=== PATIENT | male | born 1960 | race Caucasian/White ===

== ENCOUNTER 2017-08-31 07:59 | Day surgery (SDC) | payer OTHER ==
[2017-08-27 13:19] VITALS: BMI 32.1
[2017-08-31] MEDS ORDERED: PROPOFOL 20 ML ONE ×2 (08:38)
[2017-08-31] MEDS ORDERED: LIDOCAINE HCL/PF 2% SDV 5ML VIAL ONE (08:38)
[2017-08-31 10:36] VITALS: TEMP 97.7
[2017-08-31 11:16] VITALS: BP 107/71; PULSE 64
--- NOTE | 2017-09-02 10:39 | PATH ---
Surgical Pathology Report Patient Name: CLARISA ERICKSON [facility]. Rec. #: [id number] /Age/Gender: 1960 (Age: 57) / M Account: [id number] Location: Taken: 08/31/2017 Received: 08/31/2017 Reported: 09/02/2017 Physicians: Prince Jones M.D. Specimen(s) Received A: SPLENIC FLEXURE POLYP B: CECAL POLYP Clinical History Preoperative diagnosis: History of polyp, family history of colon cancer Postoperative diagnosis: Diverticulosis, colon polyps Final Diagnosis A. COLON, SPLENIC FLEXURE, POLYPECTOMY: TUBULAR ADENOMA. B. COLON, CECUM, POLYPECTOMY: TUBULAR ADENOMA. Comment: Recommend correlation with clinical findings and follow up as clinically indicated. Electronically Signed Terry Da Silva M.D. Gross Description A. Received in formalin, labeled "splenic flexure polyp" is a flores, irregular portion of soft tissue measuring 0.2 cm. in greatest dimension. The specimen is submitted in toto in one cassette. B. Received in formalin, labeled "cecal polyp" is a flores, irregular portion of soft tissue measuring 0.2 cm. in greatest dimension. The specimen is submitted in toto in one cassette. 09/01/201709/01/2017
== END 2017-08-31 11:10 | disposition home or self-care (01) ==
LOC: FASU-ENDO 07:59
PROVIDERS: ATTEND Internal Medicine Gastroenterology
PROC: 0DBL8ZX Excision of Transverse Colon, Via Natural or Artificial Opening Endoscopic, Diagnostic (ICD-10-PCS; 2017-08-31)
PROC: 0DBH8ZX Excision of Cecum, Via Natural or Artificial Opening Endoscopic, Diagnostic (ICD-10-PCS; principal; 2017-08-31 09:00)
DX: Z86.010 Personal history of colon polyps (principal); Z83.71 Family history of colonic polyps; Z80.0 Family history of malignant neoplasm of digestive organs; K57.30 Diverticulosis of large intestine without perforation or abscess without bleeding
CPT/HCPCS: 88305-TC

== ENCOUNTER 2018-05-10 17:12 | Inpatient (IN) | payer OTHER ==
[2018-05-10] MEDS ORDERED: SODIUM CHLORIDE 1,000 ML IV STA ×3 (17:52→19:15)
[2018-05-10] MEDS ORDERED: ONDANSETRON 4 MG/2 ML VIAL IVPUSH ONE (17:56)
--- NOTE | 2018-05-10 18:03 | PDOC ---
Attending Attestation - HPI HPI: 05/10/18 21:21 The patient is a 57 year old male with a past medical history of HTN and type 2 diabetes who presents to the emergency department for evaluation of blood sugar problem w/ vomiting. The patient reports sudden onset of NBNB emesis at 1130 am. Pt endorses symptoms of subjective fever, chills, urinary frequency, epigastric pain, weight loss, and severe shortness of breath. As per at bedside, the patient recently ran out of Fisgo and REVENTIVE a couple of days ago. Pt reports a BS level of 380 after checking it at work today. He endorses recent travel and sick contact from a person on the plane. The patient denies chest pain, headache, dizziness, diarrhea, constipation, dysuria, and hematuria. Allergies: ampicillin, penicillins. - Physicial Exam PE: Constitutional: (+)Toxic appearing. Head: Normocephalic. Atraumatic Eyes: PERRL. EOMI. Conjunctivae are not pale. ENT: (+)Dry mucous membranes. Posterior pharynx without exudates or erythema. Uvula midline. Neck: Supple. Full ROM. No lymphadenopathy. Cardiovascular: (+)Tachycardic. S1, S2 regular. Distal pulses are 2+ and symmetric. Pulmonary/Chest: (+)tachypneic. Clear to auscultation bilaterally No wheezing , rales or rhonchi. Abdominal: (+)Epigastric LUQ tenderness. Soft and non-distended. No rebound, guarding or rigidity. No organomegaly. No palpable masses. Good bowel sounds. Back: No CVA tenderness. Musculoskeletal: (+) Mild trace edema at ankles. No cyanosis. No clubbing. Full range of motion in all extremities. Nocalf tenderness. Radial/pedal pulses are intact and 2+ bilaterally Skin: Skin is warm and dry. No petechiae. No purpura. Neurological: Alert and oriented to person, place, and time. Cranial nerves II -XII are grossly intact. Normal speech. Strength is grossly symmetric. No sensory deficits. Psychiatric: Good eye contact. Normal interaction, affect and behavior. <Yandel Randle - Last Filed: 05/10/18 21:21> - Resident Resident Name: Jose Noel - ED Attending Attestation I have performed the following: I have examined & evaluated the patient, The case was reviewed & discussed with the resident, I agree w/resident's findings & plan, Exceptions are as noted - Critical Care Time Total Critical Care Time: 60 Critical Care Statement: The care of this patient involved high complexity decision making to prevent further life threatening deterioration of the patient 's condition and/or to evaluate & treat vital organ system(s) failure or risk of failure. - Medical Decision Making 05/10/18 18:03 I, Dr. Angy Gentile DO, attest that this document has been prepared under my direction and personally reviewed by me in its entirety. I further attest, that it accurately reflects all work, treatment, procedures and medical decision -making performed by me. 05/10/18 19:30 a/p: 57yo male with tachy, tachypnic, out of insulin x 2 days -concern for DKA -will send labs, vbg, acetone -will start IVF hydration -glucose at work was 340 -out of insulin x 2 days -will start insulin gtt pending labs -pt will need to be admitted 05/10/18 19:34 gap 34 glucose elevated lactic acid elevated most likely from tachypnea -will repeat -ivf hdyration running K ok to star insulin gtt discussed case with Dr. Pearl who accepts pt to service 05/10/18 19:34 case discussed with ICU resident who accepts pt to service insulin gtt ordered <Angy Gentile - Last Filed: 05/10/18 21:41> Heart Score/ECG Review - ECG Intrepretation Comment:: 05/10/18 21:41 sinus tach at 119, nl axis, nl interval, st depression v3-6 <Angy Gentile - Last Filed: 05/10/18 21:41> Attestations - Attestations Documentation prepared by Yandel Randle, acting as medical accounts receivable specialist for Angy Gentile DO. <Yandel Randle - Last Filed: 05/10/18 21:21>
[2018-05-10] MEDS ORDERED: AZTREONAM 2 GM in DEXTROSE 5%-WATER 100 ML IVPB ONE (18:26)
[2018-05-10 18:27] LABS: VENOUS PO2 88.9 mmHg (28-48)
[2018-05-10] MEDS ORDERED: SODIUM CHLORIDE 0.9% 1000 ML INFUS.BAG IV ONE ×3 (18:27→19:29)
[2018-05-10 18:29] LABS: VENOUS PC02 16.3 mmHg (38-52); VENOUS PH 7.1 (7.32-7.42)
[2018-05-10] MEDS ORDERED: ONDANSETRON 4 MG/2 ML VIAL ONE (18:33)
[2018-05-10 18:39] LABS: HEMATOCRIT 49.5 % (35.4-49); HEMOGLOBIN 15.8 GM/dL (11.7-16.9); MCH 31.5 pg (25.7-33.7); MCHC 31.9 g/dl (32.0-35.9); MEAN CELL VOLUME 98.8 fl (80-96); MEAN PLT VOLUME 9.1 fl (7.5-11.1); PLATELET COUNT 302 K/MM3 (134-434); WHITE BLOOD COUNT 24.4 K/mm3 (4.0-10.0)
--- NOTE | 2018-05-10 18:44 | PDOC ---
History of Present Illness - General Chief Complaint: Blood Sugar Problem Stated Complaint: DIABETES Time Seen by Provider: 05/10/18 17:44 History Source: Patient Exam Limitations: No Limitations - History of Present Illness Initial Comments: 05/10/18 18:38 Patient is a 57M with history of IDDM and HTN here today complaining of epigastric abdominal pain and vomiting that started this morning. The patient states that he recently ran out of his long acting insulin and recently traveled by air. Patient endorses losing weight and increased urination. Patient denies cough, chest pain. Patient denies history of prior DKA. Patient endorses fever, chills. Past History - Past Medical History Allergies/Adverse Reactions: Allergies Allergy/AdvReac Type Severity Reaction Status Date / Time ampicillin Allergy Severe ITCHING, Verified 08/31/17 08:21 RASH Penicillins Allergy Intermediate Itching, Verified 08/31/17 08:21 RASH Home Medications: Ambulatory Orders Insulin Aspart [Novolog] 18 unit SQ BID 06/08/15 Insulin Glargine,Hum.rec.anlog [Lantus (10mL VIAL) -] 68 units SQ HS 06/08/15 Atorvastatin Calcium 10 mg PO DAILY tablet 07/04/15 Losartan/Hydrochlorothiazide [Losartan-Hctz 100-12.5 Mg Tab] 1 each PO DAILY tablet 07/04/15 Cholecalciferol (Vitamin D3) [Vitamin D3] 2,000 unit PO DAILY 08/27/17 Dapagliflozin Propanediol [Farxiga] 10 mg PO DAILY 08/27/17 Sildenafil Citrate [Viagra] 50 mg PO HS 08/27/17 Anemia: No Asthma: No Cancer: No Cardiac Disorders: No CVA: No COPD: No CHF: No Dementia: No Diabetes: Yes (DX 2002) GI Disorders: Yes (HX COLONIC POLYS- FATHER COLON CA) Disorders: No HTN: Yes Hypercholesterolemia: Yes Liver Disease: No Seizures: No Thyroid Disease: No - Surgical History Abdominal Surgery: No Appendectomy: No Cardiac Surgery: No Cholecystectomy: No Lung Surgery: No Neurologic Surgery: No Orthopedic Surgery: Yes (RT PATELLA FX, FX JAW AT 20 YRS OLD) - Suicide/Smoking/Psychosocial Hx Smoking History: Current every day smoker Have you smoked in the past 12 months: Yes Number of Cigarettes Smoked Daily: 10 Information on smoking cessation initiated: No Hx Alcohol Use: Yes (BEER 2-3/ DAY) Drug/Substance Use Hx: No Substance Use Type: Alcohol Hx Substance Use Treatment: No Review of Systems - Review of Systems Able to Perform ROS?: Yes Comments:: 05/10/18 18:44 GENERAL/CONSTITUTIONAL: No fever or chills. No weakness. HEAD, EYES, EARS, NOSE AND THROAT: No change in vision. No sore throat. CARDIOVASCULAR: No chest pain +shortness of breath RESPIRATORY: No cough, wheezing, or hemoptysis. GASTROINTESTINAL: +nausea, +vomiting. No diarrhea or constipation. GENITOURINARY: No dysuria, +frequency MUSCULOSKELETAL: No joint or muscle swelling or pain. No neck or back pain. SKIN: No rash NEUROLOGIC: No headache, vertigo, loss of consciousness, or change in strength/ sensation. ENDOCRINE: No increased thirst. No abnormal weight change HEMATOLOGIC/LYMPHATIC: No anemia, easy bleeding, or history of blood clots. ALLERGIC/IMMUNOLOGIC: No hives or skin allergy. *Physical Exam - Vital Signs Last Vital Signs Temp Pulse Resp BP Pulse Ox 134 H 18 134/80 100 05/10/18 17:18 05/10/18 17:18 05/10/18 17:18 05/10/18 17:18 - Physical Exam Comments: 05/10/18 18:45 GENERAL: Awake, alert, and fully oriented, in acute distress, warm to touch HEAD: No signs of trauma, normocephalic, atraumatic EYES: PERRLA, EOMI, sclera anicteric, conjunctiva clear ENT: Auricles normal inspection, hearing grossly normal, nares patent, oropharynx clear without exudates. Moist mucosa NECK: Normal ROM, supple, no lymphadenopathy, JVD, or masses LUNGS: Tachypneic to 30-40, clear to auscultation bilaterally. HEART: Tachycardic, normal S1 and S2, no murmurs, rubs or gallops, peripheral pulses normal and equal bilaterally. ABDOMEN: Soft, +tenderness in LUQ, normoactive bowel sounds. No guarding, no rebound. No masses EXTREMITIES: Normal inspection, Normal range of motion, no edema. No clubbing or cyanosis. NEUROLOGICAL: Cranial nerves II through XII grossly intact. Normal speech, normal gait, no focal sensorimotor deficits SKIN: Warm, Dry, normal turgor, no rashes or lesions noted. ED Treatment Course - LABORATORY CBC & Chemistry Diagram: 05/10/18 18:30 05/10/18 21:19 - ADDITIONAL ORDERS Additional order review: Laboratory Results 05/10/18 18:20 VBG pH 7.10 L* POC VBG pCO2 16.3 L* POC VBG pO2 88.9 H Mixed VBG HCO3 4.9 L* - RADIOLOGY Radiology Studies Ordered: Category Date Time Status CXRPORT [CHEST X-RAY PORTABLE*] [RAD] Stat Radiology 05/10/18 17:55 Taken Medical Decision Making - Medical Decision Making 05/10/18 18:45 Patient is 57M with history of IDDM and HTN here today with fever. Vital signs documented by nursing show no tachypnea, but patient was tachypeic to 30-40s during my exam with Kussmaul respirations. No fever documented but warm to touch. Will initiate broad workup looking for infection. Will fluid resuscitate. Likely DKA. PE considered, but believe that DKA is much more likely given lack of leg swelling, chest pain, and presence of fever. 05/10/18 19:39 Laboratory Tests 05/10/18 05/10/18 05/10/18 18:30 18:30 18:30 Potassium 5.3 H Anion Gap 34 H Random Glucose 460 H* Lactic Acid 5.9 H* Troponin I 0.02 Acetone, Qual Positive large 3+ K - 5.3, Gap 34, Acetone pos. Started on 500cc/hr of NaCl with 20 meq, IV 10U insulin, IV 0.1 U/kg/hr of drip. Antibiosed with aztreonam given pcn allergy. Corti accepted. Admitted via Dr Pearl. 05/10/18 23:25 Gap 34 to 30. VBG ph 7.2 to 7.1. *DC/Admit/Observation/Transfer Diagnosis at time of Disposition: DKA (diabetic ketoacidoses) - Discharge Dispostion Condition at time of disposition: Critical Decision to Admit order: Yes - Referrals - Patient Instructions - Post Discharge Activity
[2018-05-10 18:58] LABS: ALBUMIN 4.5 g/dl (3.4-5.0); ANION GAP 34 (8-16); BLOOD UREA NITROGEN 24 mg/dL (7-18); CALCIUM 9.4 mg/dL (8.5-10.1); CHLORIDE 101 mmol/L (98-107); CO2 6 mmol/L (21-32); SODIUM 141 mmol/L (136-145)
[2018-05-10 19:00] LABS: GLUCOSE,RANDOM 460 mg/dL (74-106)
[2018-05-10 19:01] LABS: BILIRUBIN,TOTAL 0.5 mg/dL (0.2-1.0); CREATININE 1.6 mg/dL (0.7-1.3); POTASSIUM 5.3 mmol/L (3.5-5.1); SGOT/AST 28 U/L (15-37); SGPT/ALT 49 U/L (12-78); TOT PROT 7.7 g/dl (6.4-8.2)
[2018-05-10 19:04] LABS: ALK PHOS 77 U/L (45-117)
[2018-05-10] MEDS ORDERED: INSULIN REGULAR HUMAN 100 UNITS/ML *VIAL IVPUSH ONE (19:05)
[2018-05-10] MEDS ORDERED: INSULIN REGULAR 100 UNITS in SODIUM CHLORIDE 99 ML IVPB SCH (19:15)
[2018-05-10] MEDS ORDERED: SODIUM CHLORIDE 0.9%/KCL 20 MEQ/1,000 ML INFUS.BAG IV SCH ×2 (19:15)
[2018-05-10] MEDS ORDERED: INSULIN REGULAR HUMAN 100 UNITS/ML *VIAL ONE (19:17)
[2018-05-10 19:55] LABS: MACROCYTOSIS 1+; PLATELET ESTIMATE ADEQUATE
--- NOTE | 2018-05-10 20:05 | HP ---
Admitting History and Physical - Primary Care Physician PCP: William Pearl - Admission History of Present Illness: 57M with history of IDDM and HTN here today complaining of epigastric abdominal pain and vomiting that started this morning. The patient states that he recently ran out of his long acting insulin and recently traveled by air. Patient endorses losing weight and increased urination. candelario denies sob, chest pain. Patient denies history of prior DKA. - Past Medical History Cardiovascular: Yes: HTN Endocrine: Yes: Diabetes Mellitus - Smoking History Smoking history: Current every day smoker Have you smoked in the past 12 months: Yes Aproximately how many cigarettes per day: 10 - Alcohol/Substance Use Hx Alcohol Use: Yes (BEER 2-3/ DAY) Home Medications - Allergies Allergies/Adverse Reactions: Allergies Allergy/AdvReac Type Severity Reaction Status Date / Time ampicillin Allergy Severe ITCHING, Verified 08/31/17 08:21 RASH Penicillins Allergy Intermediate Itching, Verified 08/31/17 08:21 RASH - Home Medications Home Medications: Ambulatory Orders Insulin Aspart [Novolog] 18 unit SQ BID 06/08/15 Insulin Glargine,Hum.rec.anlog [Lantus (10mL VIAL) -] 68 units SQ HS 06/08/15 Atorvastatin Calcium 10 mg PO DAILY tablet 07/04/15 Losartan/Hydrochlorothiazide [Losartan-Hctz 100-12.5 mg Tab] 1 each PO DAILY tablet 07/04/15 Cholecalciferol (Vitamin D3) [Vitamin D3] 2,000 unit PO DAILY 08/27/17 Dapagliflozin Propanediol [Farxiga] 10 mg PO DAILY 08/27/17 Sildenafil Citrate [Viagra] 50 mg PO HS 08/27/17 Physical Examination Vital Signs: Vital Signs Temperature Pulse Rate 134 H 05/10/18 17:18 Respiratory Rate 18 05/10/18 17:18 Blood Pressure 134/80 05/10/18 17:18 O2 Sat by Pulse Oximetry (%) 100 05/10/18 17:18 Constitutional: Yes: No Distress HENT: Yes: Atraumatic Neck: Yes: Supple Cardiovascular: Yes: Regular Rate and Rhythm Respiratory: Yes: Rhonchi Gastrointestinal: Yes: Normal Bowel Sounds Extremities: Yes: WNL Edema: No Neurological: Yes: Alert, Oriented Labs: CBC, BMP 05/10/18 18:30 05/10/18 18:30 Problem List - Problems (1) DKA (diabetic ketoacidoses) Assessment/Plan: monitor bgms insulin drip endocrine consult Code(s): E13.10 - OTH DIABETES MELLITUS WITH KETOACIDOSIS WITHOUT COMA (2) Hyperlipidemia Assessment/Plan: on meds stable Code(s): E78.5 - HYPERLIPIDEMIA, UNSPECIFIED (3) Hypertension Assessment/Plan: on meds stable Code(s): I10 - ESSENTIAL (PRIMARY) HYPERTENSION Assessment/Plan Laboratory Tests 05/10/18 05/10/18 05/10/18 18:20 18:30 18:30 WBC 24.4 H RBC 5.00 Hgb 15.8 Hct 49.5 H MCV 98.8 H MCH 31.5 MCHC 31.9 L RDW 14.0 Plt Count 302 MPV 9.1 Absolute Neuts (auto) 21.2 H Total Counted 100 Neutrophils % No Result Required. Neutrophils % (Manual) 92.0 H Lymphocytes % No Result Required. Lymphocytes % (Manual) 3.0 L Monocytes % (Manual) 5 Nucleated RBC % 0 Differential Comment Man diff performed Platelet Estimate Adequate Platelet Comment Polychromasia 1+ Macrocytosis 1+ VBG pH 7.10 L* POC VBG pCO2 16.3 L* POC VBG pO2 88.9 H Mixed VBG HCO3 4.9 L* Sodium 141 Potassium 5.3 H Chloride 101 Carbon Dioxide 6 L Anion Gap 34 H BUN 24 H Creatinine 1.6 H Creat Clearance w eGFR 44.94 Random Glucose 460 H* Lactic Acid Calcium 9.4 Total Bilirubin 0.5 AST 28 ALT 49 Alkaline Phosphatase 77 Creatine Kinase 190 Creatine Kinase Index 2.2 CK-MB (CK-2) 4.20 H Troponin I 0.02 Total Protein 7.7 Albumin 4.5 Lipase Acetone, Qual 05/10/18 05/10/18 05/10/18 18:30 18:30 18:30 WBC RBC Hgb Hct MCV MCH MCHC RDW Plt Count MPV Absolute Neuts (auto) Total Counted Neutrophils % Neutrophils % (Manual) Lymphocytes % Lymphocytes % (Manual) Monocytes % (Manual) Nucleated RBC % Differential Comment Platelet Estimate Platelet Comment Polychromasia Macrocytosis VBG pH POC VBG pCO2 POC VBG pO2 Mixed VBG HCO3 Sodium Potassium Chloride Carbon Dioxide Anion Gap BUN Creatinine Creat Clearance w eGFR Random Glucose Lactic Acid 5.9 H* Calcium Total Bilirubin AST ALT Alkaline Phosphatase Creatine Kinase Creatine Kinase Index CK-MB (CK-2) Troponin I Total Protein Albumin Lipase 180 Acetone, Qual Positive large 3+ Active Medications Generic Name Dose Route Start Last Admin Trade Name Ida PRN Reason Stop Dose Admin Insulin Human Regular 100 100 mls @ 9.84 mls/hr 05/10/18 19:15 units/ Sodium Chloride IVPB TITR MELISSA Protocol 0.1 UNITS/KG/HR Potassium Chloride/Sodium Chloride 20 meq in 1,000 mls @ 500 mls/hr 05/10/18 19:15 Ns+20 Meq Kcl - IV ASDIR MELISSA Sodium Chloride 1,000 mls @ 1,000 mls/hr 05/10/18 19:15 Normal Saline - IV 05/10/18 20:14 ASDIR STA Active Medications Generic Name Dose Route Start Last Admin Trade Name Ida PRN Reason Stop Dose Admin Atorvastatin Calcium 10 mg 05/12/18 22:00 05/12/18 22:14 Lipitor - PO 10 mg HS MELISSA Administration Hydrochlorothiazide 12.5 mg 05/12/18 10:00 05/12/18 10:07 Hctz - PO 12.5 mg DAILY MELISSA Administration Insulin Aspart 12 units 05/12/18 07:00 05/12/18 16:35 Novolog Vial SQ 12 units BID@[id number],1630 MELISSA Administration Insulin Aspart 1 vial 05/11/18 22:00 05/12/18 22:15 Novolog Vial Sliding Scale - SQ 6 units ACHS MELISSA Administration Protocol Insulin Detemir 50 units 05/12/18 22:00 05/12/18 22:14 Levemir Vial SQ 50 units HS MELISSA Administration Losartan Potassium 100 mg 05/12/18 10:00 05/12/18 10:07 Cozaar - PO 100 mg DAILY MELISSA Administration Potassium Phos/Sodium Phos 1 packet 05/12/18 11:30 05/12/18 22:14 Phos-Nak Packet - PO 1 packet BID MELISSA Administration
[2018-05-10 21:48] LABS: BLOOD UREA NITROGEN 26 mg/dL (7-18); CHLORIDE 110 mmol/L (98-107); CREATININE 1.6 mg/dL (0.7-1.3); SODIUM 144 mmol/L (136-145)
[2018-05-10 22:08] LABS: ANION GAP 30 (8-16); CO2 4 mmol/L (21-32)
[2018-05-10 22:10] LABS: GLUCOSE,RANDOM 376 mg/dL (74-106)
[2018-05-10 22:44] LABS: ALLENS TEST POSITIVE; ARTERIAL BLD GAS O2 SATURATION 97.5 % (90-98.9)
--- NOTE | 2018-05-10 22:48 | CONSULT ---
Consultation: REQUESTING PROVIDER: CONSULT REQUEST: ICU monitoring. HISTORY OF PRESENT ILLNESS: The patient is a 57 year old male with a PMH of DM, diagnosed in 2002, HTN, hyperlipidemia, presented to the hospital today complaining of abdominal pain and multiple NBNB vomiting that started this morning at work. The patient also reports weakness, SOB, warmth feeling, increased thirst and urination today and weight loss x 2 weeks.The patient states that he recently ran out of his insulin. Yesterday, he only took 50 units of Lantus instead of 68 and today only 10 units of Novolog in AM without eating breakfast. 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 He f/u with Neonatal Icu Coordinator (Dr Gonzalo Keane) every 3 months, last Hg A1C was 7.7%, never had DKA and FS at home range around 120, hypoglycemia around 4- 5 PM when he needs to drink juice. On arrival to ED his Labs; WBC 24.4, neut. 92, Na 141, k 5.3, AG 34, BUN 24, Cr 1.6, glu 460, LA 5.9, CK MB 5.2, 3+ acetone, VBG 7.1, pC02 16.3, p02 88.9. He was started on insulin drip, NS with 20meq KCL, admitted to ICU for management of DKA. On arrival he was AAOx3, BP 123/58, HR 105, Oxyg.Sat 100%, no acute distress, at bedside. he denies dysuria, fever, chills, cough, SOB, sore throat, N/V, chest pain. PSH: broken jaw at age 20, right knee repair SH: current smoker 5/day for 37 years, 3 beers/day, no drugs. 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 FH: parents; mother healthy, father , sister breast Ca, 2 healthy children REVIEW OF SYSTEMS: CONSTITUTIONAL: generalized weakness, loss of appetite, weight change Absent: fever, chills, diaphoresis, malaise HEENT: Absent: rhinorrhea, nasal congestion, throat pain, difficulty swallowing, ear pain, eye pain, visual changes CARDIOVASCULAR: Absent: chest pain, syncope, palpitations, irregular heart rate, lightheadedness , peripheral edema RESPIRATORY: shortness of breath Absent: cough, dyspnea with exertion, orthopnea, wheezing, stridor, hemoptysis GASTROINTESTINAL:abdominal pain, nausea, vomiting Absent: abdominal distension, diarrhea, constipation, melena, hematochezia GENITOURINARY: Absent: dysuria, frequency, urgency, hesitancy, hematuria, flank pain, genital pain MUSCULOSKELETAL: Absent: myalgia, arthralgia, ENDOCRINE: unexplained weight loss, Absent: unexplained weight gain, heat intolerance, cold intolerance NEUROLOGIC: Absent: headache, focal weakness or paresthesias, dizziness, unsteady gait, seizure, mental status changes PSYCHIATRIC: Absent: anxiety, depression PHYSICAL EXAMINATION Vital Signs - 24 hr 05/10/18 05/10/18 05/10/18 17:18 19:32 20:44 Temperature 99.2 F Pulse Rate 134 H Pulse Rate [ 129 H 132 H Apical] Respiratory 18 30 H 28 H Rate Blood Pressure 134/80 Blood Pressure 117/64 132/53 [Right Arm] O2 Sat by Pulse 100 100 100 Oximetry (%) GENERAL: Awake, alert, and fully oriented, in no acute distress, lying comfortably in bed. HEAD: Normal with no signs of trauma. EYES: Pupils equal, round and reactive to light, extraocular movements intact, sclera anicteric, conjunctiva clear. EARS, NOSE, THROAT: Oropharynx clear without exudates. Dry mucous membranes. NECK: Normal range of motion, supple without lymphadenopathy, JVD. LUNGS: Breath sounds equal, clear to auscultation bilaterally. No wheezes, and no crackles. No accessory muscle use. HEART: Regular rate and rhythm, normal S1 and S2 without murmur, rub or gallop. ABDOMEN: Soft, nontender, not distended, normoactive bowel sounds, no guarding, no rebound, no masses. MUSCULOSKELETAL: Normal range of motion at all joints. No bony deformities or tenderness. No CVA tenderness. UPPER EXTREMITIES: No peripheral edema. LOWER EXTREMITIES: 2+ pulses, warm, no peripheral edema. NEUROLOGICAL: non focal, no face asymmetry, no slurred speech, gait not observed. PSYCHIATRIC: Cooperative. Good eye contact. Appropriate mood and affect. SKIN: Warm, dry, normal turgor, no rashes. Laboratory Results - last 24 hr 05/10/18 05/10/18 05/10/18 18:20 18:30 18:30 WBC 24.4 H RBC 5.00 Hgb 15.8 Hct 49.5 H MCV 98.8 H MCH 31.5 MCHC 31.9 L RDW 14.0 Plt Count 302 MPV 9.1 Absolute Neuts (auto) 21.2 H Total Counted 100 Neutrophils % No Result Required. Neutrophils % (Manual) 92.0 H Lymphocytes % No Result Required. Lymphocytes % (Manual) 3.0 L Monocytes % (Manual) 5 Nucleated RBC % 0 Differential Comment Man diff performed Platelet Estimate Adequate Platelet Comment Polychromasia 1+ Macrocytosis 1+ VBG pH 7.10 L* POC VBG pCO2 16.3 L* POC VBG pO2 88.9 H Mixed VBG HCO3 4.9 L* Sodium 141 Potassium 5.3 H Chloride 101 Carbon Dioxide 6 L Anion Gap 34 H BUN 24 H Creatinine 1.6 H Creat Clearance w eGFR 44.94 Random Glucose 460 H* Lactic Acid Calcium 9.4 Total Bilirubin 0.5 AST 28 ALT 49 Alkaline Phosphatase 77 Creatine Kinase 190 Creatine Kinase Index 2.2 CK-MB (CK-2) 4.20 H Troponin I 0.02 Total Protein 7.7 Albumin 4.5 Lipase Acetone, Qual 05/10/18 05/10/18 05/10/18 18:30 18:30 18:30 WBC RBC Hgb Hct MCV MCH MCHC RDW Plt Count MPV Absolute Neuts (auto) Total Counted Neutrophils % Neutrophils % (Manual) Lymphocytes % Lymphocytes % (Manual) Monocytes % (Manual) Nucleated RBC % Differential Comment Platelet Estimate Platelet Comment Polychromasia Macrocytosis VBG pH POC VBG pCO2 POC VBG pO2 Mixed VBG HCO3 Sodium Potassium Chloride Carbon Dioxide Anion Gap BUN Creatinine Creat Clearance w eGFR Random Glucose Lactic Acid 5.9 H* Calcium Total Bilirubin AST ALT Alkaline Phosphatase Creatine Kinase Creatine Kinase Index CK-MB (CK-2) Troponin I Total Protein Albumin Lipase 180 Acetone, Qual Positive large 3+ 05/10/18 21:19 WBC RBC Hgb Hct MCV MCH MCHC RDW Plt Count MPV Absolute Neuts (auto) Total Counted Neutrophils % Neutrophils % (Manual) Lymphocytes % Lymphocytes % (Manual) Monocytes % (Manual) Nucleated RBC % Differential Comment Platelet Estimate Platelet Comment Polychromasia Macrocytosis VBG pH POC VBG pCO2 POC VBG pO2 Mixed VBG HCO3 Sodium 144 Potassium Chloride 110 H Carbon Dioxide 4 L D Anion Gap 30 H BUN 26 H Creatinine 1.6 H Creat Clearance w eGFR 44.94 Random Glucose 376 H* Lactic Acid Calcium 8.0 L Total Bilirubin AST ALT Alkaline Phosphatase Creatine Kinase Creatine Kinase Index CK-MB (CK-2) Troponin I Total Protein Albumin Lipase Acetone, Qual Active Medications Generic Name Dose Route Start Last Admin Trade Name Freq PRN Reason Stop Dose Admin Atorvastatin Calcium 10 mg 05/11/18 10:00 Lipitor - PO DAILY MELISSA Hydrochlorothiazide 12.5 mg 05/11/18 10:00 Hctz - PO DAILY MELISSA Insulin Human Regular 100 100 mls @ 9.84 mls/hr 05/10/18 19:15 05/10/18 20:07 units/ Sodium Chloride IVPB 0.1 units/kg/hr TITR MELISSA 9.84 mls/hr Administration Protocol 0.1 UNITS/KG/HR Potassium Chloride/Sodium Chloride 20 meq in 1,000 mls @ 500 mls/hr 05/10/18 19:15 05/10/18 21:17 Ns+20 Meq Kcl - IV 500 mls/hr ASDIR MELISSA Administration Losartan Potassium 100 mg 05/11/18 10:00 Losartan Potassium PO DAILY MELISSA Non-Formulary Medication 10 mg 05/11/18 10:00 Dapagliflozin Propanediol [Farxiga] PO DAILY MELISSA ASSESSMENT/PLAN: The patient is a 57 year old male with a PMH of DM, HTN, hyperlipidemia, presented to the hospital today complaining of abdominal pain and multiple NBNB vomiting that started this morning at work. The patient also reports weakness, SOB, feeling of warmth, increased thirst and urination today and weight x 2 weeks. he was found to have DKA and is admitted to ICU for further monitoring. DKA with AG of 34 on admission metab. acidosis SIRS( tachy, elevated WBC, increased RR, LA) elevated LA leukocytosis HTN Hyperlipidemia Plan: DKA caused most likely by non compliance with insulin, also r/o infection, elevated WBC, tachycardia, sick contact, CXR WNL, UA no infection, blood and urine cultures pending, given 2 g of Aztreonam in ED in the evening, ID consulted, will f/u, urine Legionella, flu swab ordered continue 0.45 % NS with 20meq of KCL at 250 cc/hr continue Insulin gtt at 0.1 u/kg/hr FS every 2h, BMP every 2-4hrs when serum glucose reaches 200, we will switch to D5 with 0.45% at 150 to 250 ml /hr, f/u AG, and decrease his insulin drip we will also need to start long acting Insulin when AG closes hold his home meds for now f/u HgA1c NPO F/U endocrinology recommendations 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 Thank you for this consultative opportunity. Problem List - Problems (1) Hypertension Code(s): I10 - ESSENTIAL (PRIMARY) HYPERTENSION (2) Hyperlipidemia Code(s): E78.5 - HYPERLIPIDEMIA, UNSPECIFIED (3) DKA (diabetic ketoacidoses) Code(s): E13.10 - OTH DIABETES MELLITUS WITH KETOACIDOSIS WITHOUT COMA Visit type - Emergency Visit Emergency Visit: Yes ED Registration Date: 05/10/18 Care time: The patient presented to the Emergency Department on the above date and was hospitalized for further evaluation of their emergent condition. - New Patient This patient is new to me today: Yes Date on this admission: 05/11/18 - Critical Care Critical Care patient: Yes Total Critical Care Time (in minutes): 40 Critical Care Statement: The care of this patient involved high complexity decision making to prevent further life threatening deterioration of the patient 's condition and/or to evaluate & treat vital organ system(s) failure or risk of failure.
[2018-05-10 23:04] LABS: URINE APPEARANCE CLEAR; URINE BILIRUBIN NEGATIVE (<2.0 mg/dL); URINE COLOR STRAW; URINE GLUCOSE (UA) 3+ (NEGATIVE); URINE KETONE 2+ (NEGATIVE); URINE LEUK ESTERASE NEGATIVE (NEGATIVE); URINE NITRITE NEGATIVE (NEGATIVE); URINE UROBILINOGEN NEGATIVE mg/dL (0.2-1.0)
[2018-05-10 23:07] LABS: EPI CELLS RARE /HPF (FEW); URINE MUCUS RARE; URINE PROTEIN 1+ (NEGATIVE)
[2018-05-10 23:26] LABS: ANION GAP 25 (8-16); BLOOD UREA NITROGEN 26 mg/dL (7-18); CALCIUM 7.8 mg/dL (8.5-10.1); CHLORIDE 110 mmol/L (98-107); CO2 8 mmol/L (21-32); CREATININE 1.5 mg/dL (0.7-1.3); MAGNESIUM 2.6 mg/dL (1.8-2.4); PHOSPHOROUS 2.3 mg/dL (2.5-4.9); POTASSIUM 4.2 mmol/L (3.5-5.1); SODIUM 143 mmol/L (136-145)
[2018-05-10 23:31] LABS: GLUCOSE,RANDOM 328 mg/dL (74-106)
[2018-05-10] MEDS ORDERED: SODIUM CHLORIDE 0.45%/POT 20 MEQ/1,000 ML INFUS.BAG IV SCH (23:45)
[2018-05-11] MEDS ORDERED: D5-1/2NS+20 MEQ KCL - 20 MEQ/1,000 ML INFUS.BAG IV SCH (03:30)
[2018-05-11] MEDS ORDERED: INSULIN REGULAR 100 UNITS in SODIUM CHLORIDE 99 ML IVPB SCH (03:30)
[2018-05-11 04:18] LABS: ANION GAP 13 (8-16); BLOOD UREA NITROGEN 22 mg/dL (7-18); CALCIUM 7.8 mg/dL (8.5-10.1); CHLORIDE 113 mmol/L (98-107); CO2 18 mmol/L (21-32); CREATININE 1.4 mg/dL (0.7-1.3); GLUCOSE,RANDOM 154 mg/dL (74-106); POTASSIUM 4.1 mmol/L (3.5-5.1); SODIUM 144 mmol/L (136-145)
[2018-05-11 06:31] LABS: BASO % 0.2 % (0-2.0); HEMATOCRIT 42.6 % (35.4-49); HEMOGLOBIN 14.2 GM/dL (11.7-16.9); LYMPH % 5.6 % (8-40); MCH 31.5 pg (25.7-33.7); MCHC 33.4 g/dl (32.0-35.9); MEAN CELL VOLUME 94.2 fl (80-96); MEAN PLT VOLUME 8.1 fl (7.5-11.1); MONO % 8.5 % (3.8-10.2); NEUT % 85.7 % (42.8-82.8); PLATELET COUNT 180 K/MM3 (134-434); RBC 4.52 M/mm3 (4.00-5.60); RDW 13.4 % (11.9-15.9); WHITE BLOOD COUNT 20.9 K/mm3 (4.0-10.0)
[2018-05-11 06:53] LABS: ALBUMIN 3.7 g/dl (3.4-5.0); BLOOD UREA NITROGEN 19 mg/dL (7-18); CHLORIDE 111 mmol/L (98-107); GLUCOSE,RANDOM 181 mg/dL (74-106); POTASSIUM 4.7 mmol/L (3.5-5.1); SGOT/AST 35 U/L (15-37); SODIUM 142 mmol/L (136-145)
[2018-05-11 06:56] LABS: ALK PHOS 55 U/L (45-117); ANION GAP 9 (8-16); BILIRUBIN,TOTAL 0.6 mg/dL (0.2-1.0); CALCIUM 8.1 mg/dL (8.5-10.1); CO2 22 mmol/L (21-32); CREATININE 1.4 mg/dL (0.7-1.3); MAGNESIUM 2.6 mg/dL (1.8-2.4); SGPT/ALT 44 U/L (12-78); TOT PROT 6.3 g/dl (6.4-8.2)
[2018-05-11] MEDS ORDERED: INSULIN (LEVEMIR) 100 UNITS/ML UNITS SQ ONE ×3 (07:18→22:00)
[2018-05-11] MEDS ORDERED: PT OWN MED DRAWER 7, Y5N ONE ×2 (09:58→10:53)
[2018-05-11] MEDS ORDERED: PATIENT'S OWN MEDICATION (NON-FORMULARY) (Losartan/Hydrochlorothiazide [Losartan-Hctz 100- PO SCH (10:00)
[2018-05-11] MEDS ORDERED: HYDROCHLOROTHIAZIDE 12.5 MG CAPSULE (FP) PO SCH (10:00)
[2018-05-11] MEDS ORDERED: LOSARTAN POTASSIUM 100 MG TABLET PO SCH (10:00)
[2018-05-11] MEDS ORDERED: PATIENT'S OWN MEDICATION (NON-FORMULARY) (Dapagliflozin Propanediol [Farxiga] 10 MG) PO SCH (10:00)
[2018-05-11] MEDS ORDERED: ATORVASTATIN CA 10 MG TABLET (FP) PO SCH (10:00)
[2018-05-11] MEDS ORDERED: INSULIN (NOVOLOG) ASPART 100 UNITS/ML 10ML VIAL SQ ONE (10:44)
--- NOTE | 2018-05-11 11:14 | PN ---
Teaching Attending Note Name of Resident: Alissa Gregorio ATTENDING PHYSICIAN STATEMENT I saw and evaluated the patient. I reviewed the resident's note and discussed the case with the resident. I agree with the resident's findings and plan as documented. SUBJECTIVE: Pt seen and examined in the ICU. Feeling better today. Anion gap closed, insulin gtt off this AM. Denies fevers or chills. Tolerating PO. OBJECTIVE: Vital Signs Period Temp Pulse Resp BP Sys/Casiano Pulse Ox Last 24 Hr 97.4 F-99.6 F 81-134 15-30 112-134/53-80 100-100 Intake & Output 05/08/18 05/09/18 05/10/18 05/11/18 23:59 23:59 23:59 23:59 Intake Total 3410 1909 Output Total 1300 1200 Balance 2110 709 Weight 96.57 kg Gen: NAD at rest Heart: RRR Lung: decreased breath sounds at the bases Abd: soft, nontender Ext: no edema CBC, BMP 05/11/18 05:30 05/11/18 05:30 Active Medications Atorvastatin Calcium (Lipitor -) 10 mg PO DAILY [facility] Last Admin: 05/11/18 09:56 Dose: 10 mg Hydrochlorothiazide (Hctz -) 12.5 mg PO DAILY [facility] Last Admin: 05/11/18 09:56 Dose: 12.5 mg Potassium Chloride/Dextrose/Sod Cl (D5-1/2ns+20 Meq Kcl -) 20 meq in 1,000 mls @ 200 mls/hr IV ASDIR [facility] Last Admin: 05/11/18 03:53 Dose: 200 mls/hr Insulin Aspart (Novolog Vial Sliding Scale -) 1 vial SQ ACHS [facility]; Protocol Insulin Detemir (Levemir Vial) 38 units SQ ONCE ONE Stop: 05/11/18 22:01 Losartan Potassium (Cozaar -) 100 mg PO DAILY [facility] ASSESSMENT AND PLAN: Diabetic Ketoacidosis resolving Lactic Acidosis resolved Acute Kidney Injury HTN Hyperlipidemia - resume long acting insulin - IVF - monitor urine output, creatinine - PO as tolerated - monitor off antibiotics - trend WBC - can monitor on floor
[2018-05-11] MEDS ORDERED: LOSARTAN POTASSIUM 50 MG TABLET (FP) PO SCH (11:15)
--- NOTE | 2018-05-11 11:49 | PN ---
Physical Exam: SUBJECTIVE: Patient seen and examined at bedside. patient is feeling much better. he denies anymore nausea or vomiting nor does he have abdominal pain. patient is back to his normal urination schedule. his anion gap has now normalized and his electrolytes are wnl. started him back on his long acting insulin meds and d/c'd insulin drip. OBJECTIVE: Vital Signs Period Temp Pulse Resp BP Sys/Casiano Pulse Ox Last 24 Hr 97.4 F-99.6 F 81-134 15-30 112-134/53-80 100-100 GENERAL: The patient is awake, alert, and fully oriented, in no acute distress. LUNGS: Breath sounds equal, clear to auscultation bilaterally, no wheezes, no crackles, no accessory muscle use. HEART: Regular rate and rhythm, S1, S2 without murmur, rub or gallop. ABDOMEN: Soft, nontender, nondistended, normoactive bowel sounds, no guarding, no rebound, no hepatosplenomegaly, no masses. EXTREMITIES: 2+ pulses, warm, well-perfused, no edema. NEUROLOGICAL: Cranial nerves II through XII grossly intact. Normal speech, gait not observed. PSYCH: Normal mood, normal affect. SKIN: Warm, dry, normal turgor, no rashes or lesions noted Laboratory Results - last 24 hr 05/10/18 05/10/18 05/10/18 18:20 18:30 18:30 WBC 24.4 H RBC 5.00 Hgb 15.8 Hct 49.5 H MCV 98.8 H MCH 31.5 MCHC 31.9 L RDW 14.0 Plt Count 302 MPV 9.1 Absolute Neuts (auto) 21.2 H Total Counted 100 Neutrophils % No Result Required. Neutrophils % (Manual) 92.0 H Band Neutrophils % Lymphocytes % No Result Required. Lymphocytes % (Manual) 3.0 L Monocytes % Monocytes % (Manual) 5 Eosinophils % Basophils % Nucleated RBC % 0 Differential Comment Man diff performed Platelet Estimate Adequate Platelet Comment Polychromasia 1+ Macrocytosis 1+ Anticoagulation Therapy Puncture Site ABG pH ABG pCO2 at Pt Temp ABG pO2 at Pt Temp ABG HCO3 ABG O2 Sat (Measured) ABG O2 Content ABG Base Excess Agustin Test VBG pH 7.10 L* POC VBG pCO2 16.3 L* POC VBG pO2 88.9 H Mixed VBG HCO3 4.9 L* O2 Delivery Device Oxygen Flow Rate Vent Mode Vent Rate Mechanical Rate PEEP Pressure Support Vent Sodium 141 Potassium 5.3 H Chloride 101 Carbon Dioxide 6 L Anion Gap 34 H BUN 24 H Creatinine 1.6 H Creat Clearance w eGFR 44.94 POC Glucometer Random Glucose 460 H* Hemoglobin A1c % Lactic Acid Calcium 9.4 Phosphorus Magnesium Total Bilirubin 0.5 AST 28 ALT 49 Alkaline Phosphatase 77 Creatine Kinase 190 Creatine Kinase Index 2.2 CK-MB (CK-2) 4.20 H Troponin I 0.02 Total Protein 7.7 Albumin 4.5 Lipase Urine Color Urine Appearance Urine pH Ur Specific Ephraim Urine Protein Urine Glucose (UA) Urine Ketones Urine Blood Urine Nitrite Urine Bilirubin Urine Urobilinogen Ur Leukocyte Esterase Urine WBC (Auto) Urine RBC (Auto) Ur Epithelial Cells Urine Mucus Acetone, Qual 05/10/18 05/10/18 05/10/18 18:30 18:30 18:30 WBC RBC Hgb Hct MCV MCH MCHC RDW Plt Count MPV Absolute Neuts (auto) Total Counted Neutrophils % Neutrophils % (Manual) Band Neutrophils % Lymphocytes % Lymphocytes % (Manual) Monocytes % Monocytes % (Manual) Eosinophils % Basophils % Nucleated RBC % Differential Comment Platelet Estimate Platelet Comment Polychromasia Macrocytosis Anticoagulation Therapy Puncture Site ABG pH ABG pCO2 at Pt Temp ABG pO2 at Pt Temp ABG HCO3 ABG O2 Sat (Measured) ABG O2 Content ABG Base Excess Agustin Test VBG pH POC VBG pCO2 POC VBG pO2 Mixed VBG HCO3 O2 Delivery Device Oxygen Flow Rate Vent Mode Vent Rate Mechanical Rate PEEP Pressure Support Vent Sodium Potassium Chloride Carbon Dioxide Anion Gap BUN Creatinine Creat Clearance w eGFR POC Glucometer Random Glucose Hemoglobin A1c % Lactic Acid 5.9 H* Calcium Phosphorus Magnesium Total Bilirubin AST ALT Alkaline Phosphatase Creatine Kinase Creatine Kinase Index CK-MB (CK-2) Troponin I Total Protein Albumin Lipase 180 Urine Color Urine Appearance Urine pH Ur Specific Ephraim Urine Protein Urine Glucose (UA) Urine Ketones Urine Blood Urine Nitrite Urine Bilirubin Urine Urobilinogen Ur Leukocyte Esterase Urine WBC (Auto) Urine RBC (Auto) Ur Epithelial Cells Urine Mucus Acetone, Qual Positive large 3+ 05/10/18 05/10/18 05/10/18 21:19 21:45 22:19 WBC RBC Hgb Hct MCV MCH MCHC RDW Plt Count MPV Absolute Neuts (auto) Total Counted Neutrophils % Neutrophils % (Manual) Band Neutrophils % Lymphocytes % Lymphocytes % (Manual) Monocytes % Monocytes % (Manual) Eosinophils % Basophils % Nucleated RBC % Differential Comment Platelet Estimate Platelet Comment Polychromasia Macrocytosis Anticoagulation Therapy No Result Required. Puncture Site Right radial ABG pH 7.20 L* ABG pCO2 at Pt Temp 18.0 L* ABG pO2 at Pt Temp 112.0 H ABG HCO3 6.8 L* ABG O2 Sat (Measured) 97.5 ABG O2 Content 18.6 ABG Base Excess -20.0 L* Agustin Test Positive VBG pH POC VBG pCO2 POC VBG pO2 Mixed VBG HCO3 O2 Delivery Device Nasal o2 Oxygen Flow Rate 2lpm Vent Mode No Result Required. Vent Rate No Result Required. Mechanical Rate No Result Required. PEEP 0.0 Pressure Support Vent No Result Required. Sodium 144 Potassium Chloride 110 H Carbon Dioxide 4 L D Anion Gap 30 H BUN 26 H Creatinine 1.6 H Creat Clearance w eGFR 44.94 POC Glucometer Random Glucose 376 H* Hemoglobin A1c % Lactic Acid 2.3 H* Calcium 8.0 L Phosphorus Magnesium Total Bilirubin AST ALT Alkaline Phosphatase Creatine Kinase Creatine Kinase Index CK-MB (CK-2) Troponin I Total Protein Albumin Lipase Urine Color Urine Appearance Urine pH Ur Specific Ephraim Urine Protein Urine Glucose (UA) Urine Ketones Urine Blood Urine Nitrite Urine Bilirubin Urine Urobilinogen Ur Leukocyte Esterase Urine WBC (Auto) Urine RBC (Auto) Ur Epithelial Cells Urine Mucus Acetone, Qual 05/10/18 05/10/18 05/11/18 22:45 22:45 01:20 WBC RBC Hgb Hct MCV MCH MCHC RDW Plt Count MPV Absolute Neuts (auto) Total Counted Neutrophils % Neutrophils % (Manual) Band Neutrophils % Lymphocytes % Lymphocytes % (Manual) Monocytes % Monocytes % (Manual) Eosinophils % Basophils % Nucleated RBC % Differential Comment Platelet Estimate Platelet Comment Polychromasia Macrocytosis Anticoagulation Therapy Puncture Site ABG pH ABG pCO2 at Pt Temp ABG pO2 at Pt Temp ABG HCO3 ABG O2 Sat (Measured) ABG O2 Content ABG Base Excess Agustin Test VBG pH POC VBG pCO2 POC VBG pO2 Mixed VBG HCO3 O2 Delivery Device Oxygen Flow Rate Vent Mode Vent Rate Mechanical Rate PEEP Pressure Support Vent Sodium 143 Potassium 4.2 D Chloride 110 H Carbon Dioxide 8 L D Anion Gap 25 H BUN 26 H Creatinine 1.5 H Creat Clearance w eGFR 48.41 POC Glucometer 226.15211 Random Glucose 328 H* Hemoglobin A1c % Lactic Acid Calcium 7.8 L Phosphorus 2.3 L Magnesium 2.6 H Total Bilirubin AST ALT Alkaline Phosphatase Creatine Kinase Creatine Kinase Index CK-MB (CK-2) Troponin I Total Protein Albumin Lipase Urine Color Straw Urine Appearance Clear Urine pH 5.0 Ur Specific Ephraim 1.017 Urine Protein 1+ H Urine Glucose (UA) 3+ H Urine Ketones 2+ H Urine Blood 2+ H Urine Nitrite Negative Urine Bilirubin Negative Urine Urobilinogen Negative Ur Leukocyte Esterase Negative Urine WBC (Auto) 4 Urine RBC (Auto) <1 Ur Epithelial Cells Rare Urine Mucus Rare Acetone, Qual 05/11/18 05/11/18 05/11/18 03:07 03:45 05:30 WBC 20.9 H RBC 4.52 Hgb 14.2 Hct 42.6 MCV 94.2 MCH 31.5 MCHC 33.4 RDW 13.4 Plt Count 180 D MPV 8.1 D Absolute Neuts (auto) 17.9 H Total Counted 100 Neutrophils % 85.7 H Neutrophils % (Manual) 81.0 Band Neutrophils % 1.0 Lymphocytes % 5.6 L Lymphocytes % (Manual) 6.0 L D Monocytes % 8.5 Monocytes % (Manual) 11 H D Eosinophils % 0.0 Basophils % 0.2 Nucleated RBC % 0 Differential Comment Platelet Estimate Platelet Comment Polychromasia Macrocytosis Anticoagulation Therapy Puncture Site ABG pH ABG pCO2 at Pt Temp ABG pO2 at Pt Temp ABG HCO3 ABG O2 Sat (Measured) ABG O2 Content ABG Base Excess Agustin Test VBG pH POC VBG pCO2 POC VBG pO2 Mixed VBG HCO3 O2 Delivery Device Oxygen Flow Rate Vent Mode Vent Rate Mechanical Rate PEEP Pressure Support Vent Sodium 144 Potassium 4.1 Chloride 113 H Carbon Dioxide 18 L D Anion Gap 13 BUN 22 H Creatinine 1.4 H Creat Clearance w eGFR 52.42 POC Glucometer 162.13710 Random Glucose 154 H D Hemoglobin A1c % Lactic Acid Calcium 7.8 L Phosphorus Magnesium Total Bilirubin AST ALT Alkaline Phosphatase Creatine Kinase Creatine Kinase Index CK-MB (CK-2) Troponin I Total Protein Albumin Lipase Urine Color Urine Appearance Urine pH Ur Specific Ephraim Urine Protein Urine Glucose (UA) Urine Ketones Urine Blood Urine Nitrite Urine Bilirubin Urine Urobilinogen Ur Leukocyte Esterase Urine WBC (Auto) Urine RBC (Auto) Ur Epithelial Cells Urine Mucus Acetone, Qual 05/11/18 05/11/18 05/11/18 05:30 05:30 05:30 WBC RBC Hgb Hct MCV MCH MCHC RDW Plt Count MPV Absolute Neuts (auto) Total Counted Neutrophils % Neutrophils % (Manual) Band Neutrophils % Lymphocytes % Lymphocytes % (Manual) Monocytes % Monocytes % (Manual) Eosinophils % Basophils % Nucleated RBC % Differential Comment Platelet Estimate Platelet Comment Polychromasia Macrocytosis Anticoagulation Therapy Puncture Site ABG pH ABG pCO2 at Pt Temp ABG pO2 at Pt Temp ABG HCO3 ABG O2 Sat (Measured) ABG O2 Content ABG Base Excess Agustin Test VBG pH POC VBG pCO2 POC VBG pO2 Mixed VBG HCO3 O2 Delivery Device Oxygen Flow Rate Vent Mode Vent Rate Mechanical Rate PEEP Pressure Support Vent Sodium 142 Potassium 4.7 Chloride 111 H Carbon Dioxide 22 D Anion Gap 9 BUN 19 H Creatinine 1.4 H Creat Clearance w eGFR 52.42 POC Glucometer Random Glucose 181 H Hemoglobin A1c % 8.1 H Lactic Acid 1.1 Calcium 8.1 L Phosphorus 2.0 L Magnesium 2.6 H Total Bilirubin 0.6 AST 35 D ALT 44 Alkaline Phosphatase 55 D Creatine Kinase Creatine Kinase Index CK-MB (CK-2) Troponin I Total Protein 6.3 L Albumin 3.7 Lipase Urine Color Urine Appearance Urine pH Ur Specific Ephraim Urine Protein Urine Glucose (UA) Urine Ketones Urine Blood Urine Nitrite Urine Bilirubin Urine Urobilinogen Ur Leukocyte Esterase Urine WBC (Auto) Urine RBC (Auto) Ur Epithelial Cells Urine Mucus Acetone, Qual 05/11/18 05/11/18 05:56 08:06 WBC RBC Hgb Hct MCV MCH MCHC RDW Plt Count MPV Absolute Neuts (auto) Total Counted Neutrophils % Neutrophils % (Manual) Band Neutrophils % Lymphocytes % Lymphocytes % (Manual) Monocytes % Monocytes % (Manual) Eosinophils % Basophils % Nucleated RBC % Differential Comment Platelet Estimate Platelet Comment Polychromasia Macrocytosis Anticoagulation Therapy Puncture Site ABG pH ABG pCO2 at Pt Temp ABG pO2 at Pt Temp ABG HCO3 ABG O2 Sat (Measured) ABG O2 Content ABG Base Excess Agustin Test VBG pH POC VBG pCO2 POC VBG pO2 Mixed VBG HCO3 O2 Delivery Device Oxygen Flow Rate Vent Mode Vent Rate Mechanical Rate PEEP Pressure Support Vent Sodium Potassium Chloride Carbon Dioxide Anion Gap BUN Creatinine Creat Clearance w eGFR POC Glucometer 199.37746 222.34746 Random Glucose Hemoglobin A1c % Lactic Acid Calcium Phosphorus Magnesium Total Bilirubin AST ALT Alkaline Phosphatase Creatine Kinase Creatine Kinase Index CK-MB (CK-2) Troponin I Total Protein Albumin Lipase Urine Color Urine Appearance Urine pH Ur Specific [place]im Urine Protein Urine Glucose (UA) Urine Ketones Urine Blood Urine Nitrite Urine Bilirubin Urine Urobilinogen Ur Leukocyte Esterase Urine WBC (Auto) Urine RBC (Auto) Ur Epithelial Cells Urine Mucus Acetone, Qual Active Medications Generic Name Dose Route Start Last Admin Trade Name Ida PRN Reason Stop Dose Admin Atorvastatin Calcium 10 mg 05/11/18 10:00 05/11/18 09:56 Lipitor - PO 10 mg DAILY MELISSA Administration Hydrochlorothiazide 12.5 mg 05/11/18 10:00 05/11/18 09:56 Hctz - PO 12.5 mg DAILY MELISSA Administration Potassium Chloride/Dextrose/Sod Cl 20 meq in 1,000 mls @ 200 mls/hr 05/11/18 03:30 05/11/18 03:53 D5-1/2ns+20 Meq Kcl - IV 200 mls/hr ASDIR MELISSA Administration Insulin Aspart 1 vial 05/11/18 11:00 Novolog Vial Sliding Scale - SQ ACHS [facility] Protocol Insulin Detemir 38 units 05/11/18 22:00 Levemir Vial SQ 05/11/18 22:01 ONCE ONE Losartan Potassium 100 mg 05/11/18 11:15 Cozaar - PO DAILY [facility] ASSESSMENT/PLAN: 57 y/o male with PMH of DM, HTN, HLD, presented with abdominal pain and multiple episodes of vomiting in addition to increased thirst and urination found to have a glucose level of 460, anion gap of 34, K 5.3 and lactic acid 5.9 , in addition to having 3+ acetones- found to be in DKA. Clinically now improving. DKA: patients most recent BMP show much improvement- AG is 9 and electrolytes wnl -no long on insulin drip -continue with fluids -gave patient 30 levemir once, and will give 38 levemir tonight -started patient on ISS -will monitor urine output -monitor BGM every 4 hours -monitor BMP -IV fluids HTN/HLD: restart patient on home medications F/E/N fluids d5 1/2NS @200mls/hr replete electrolytes when necessary diabetic diet dispo: transfer to med surg Problem List - Problems (1) DKA (diabetic ketoacidoses) Code(s): E13.10 - OTH DIABETES MELLITUS WITH KETOACIDOSIS WITHOUT COMA (2) Hyperlipidemia Code(s): E78.5 - HYPERLIPIDEMIA, UNSPECIFIED (3) Hypertension Code(s): I10 - ESSENTIAL (PRIMARY) HYPERTENSION Visit type - Emergency Visit Emergency Visit: Yes ED Registration Date: 05/10/18 Care time: The patient presented to the Emergency Department on the above date and was hospitalized for further evaluation of their emergent condition. - New Patient This patient is new to me today: Yes Date on this admission: 05/11/18 - Critical Care Critical Care patient: Yes Total Critical Care Time (in minutes): 35 Critical Care Statement: The care of this patient involved high complexity decision making to prevent further life threatening deterioration of the patient 's condition and/or to evaluate & treat vital organ system(s) failure or risk of failure.
--- NOTE | 2018-05-11 11:50 | CONSULT ---
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 The patient also reports weakness, SOB, warmth feeling, increased thirst and urination today and weight loss x 2 weeks.The patient states that he recently ran out of his insulin. Yesterday, he only took 50 units of Lantus instead of 68 and today only 10 units of Novolog in AM without eating breakfast. 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 He f/u with Consumer Analyst (Dr Gonzalo Keane) every 3 months, last Hg A1C was 7.7%, never had DKA and FS at home 120 to 200, Has occ hypoglycemia around 4-5 PM when he needs to drink juice. On arrival to ED his Labs; WBC 24.4, neut. 92, Na 141, k 5.3, AG 34, BUN 24, Cr 1.6, glu 460, LA 5.9, CK MB 5.2, 3+ acetone, VBG 7.1, pC02 16.3, p02 88.9. He was started on insulin drip, NS with 20meq KCL, admitted to ICU for management of DKA which resolved overnight and pt currenly on SQ Insulin. Pt also on Farxiga. Denies any visual symptoms or paresthesia of feet. - History Source History Provided By: Patient, Medical Record Limitations to Obtaining History: No Limitations - Past Medical History Cardio/Vascular: Yes: HTN Endocrine: Yes: Diabetes Mellitus - Alcohol/Substance Use Hx Alcohol Use: Yes (BEER 2-3/ DAY) - Smoking History Smoking history: Current every day smoker Have you smoked in the past 12 months: Yes Aproximately how many cigarettes per day: 10 Home Medications - Allergies Allergies/Adverse Reactions: Allergies Allergy/AdvReac Type Severity Reaction Status Date / Time ampicillin Allergy Severe ITCHING, Verified 08/31/17 08:21 RASH Penicillins Allergy Intermediate Itching, Verified 08/31/17 08:21 RASH - Home Medications Home Medications: Ambulatory Orders Insulin Aspart [Novolog] 18 unit SQ BID 06/08/15 Insulin Glargine,Hum.rec.anlog [Lantus (10mL VIAL) -] 68 units SQ HS 06/08/15 Atorvastatin Calcium 10 mg PO DAILY tablet 07/04/15 Losartan/Hydrochlorothiazide [Losartan-Hctz 100-12.5 Mg Tab] 1 each PO DAILY tablet 07/04/15 Cholecalciferol (Vitamin D3) [Vitamin D3] 2,000 unit PO DAILY 08/27/17 Dapagliflozin Propanediol [Farxiga] 10 mg PO DAILY 08/27/17 Sildenafil Citrate [Viagra] 50 mg PO HS 08/27/17 Family Disease History - Family Disease History Other Family History: Grandmother Gestational DM Review of Systems - Review of Systems Constitutional: reports: Malaise Eyes: reports: No Symptoms HENT: reports: No Symptoms Neck: reports: No Symptoms Cardiovascular: reports: No Symptoms Respiratory: reports: No Symptoms Gastrointestinal: reports: No Symptoms Genitourinary: reports: No Symptoms Musculoskeletal: reports: No Symptoms Integumentary: reports: No Symptoms Neurological: reports: No Symptoms Endocrine: reports: No Symptoms Hematology/Lymphatic: reports: No Symptoms Physical Exam Vital Signs: Vital Signs Temperature 99.6 F 05/11/18 10:00 Pulse Rate 82 05/11/18 10:00 Respiratory Rate 15 05/11/18 10:00 Blood Pressure 124/62 05/11/18 10:00 O2 Sat by Pulse Oximetry (%) 100 05/10/18 23:19 Constitutional: Yes: No Distress, Calm Eyes: Yes: Conjunctiva Clear, EOM Intact HENT: Yes: Atraumatic, Normocephalic Neck: Yes: Supple, Trachea Midline Cardiovascular: Yes: Regular Rate and Rhythm Respiratory: Yes: Regular, CTA Bilaterally Gastrointestinal: Yes: Normal Bowel Sounds, Soft Musculoskeletal: Yes: WNL Extremities: Yes: WNL Edema: No Neurological: Yes: Alert, Oriented Labs: CBC, BMP 05/11/18 05:30 05/11/18 05:30 Imaging - Results Chest X-ray: Report Reviewed Assessment/Plan AP; DKA DM ?type 1 Leukocytosis HTN HLD BGM QACHS and 3 AM Levemir 30 units and 38 units given today Novolog SS coverage Discussed with housestaff. Monitor BGM overnight. Start D5 if FS starts dropping less than 120 overnight. Decrease Novolog 12 units BID CMP in AM with Phos and Mag Infectious disease consult Will f/u
[2018-05-11] MEDS: INSULIN SLIDING SCALE (NOVOLOG) 1 VIAL SQ SCH ×3 (12:26→21:43)
[2018-05-11 12:34] VITALS: BMI 30.4
[2018-05-11] MEDS ORDERED: RANITIDINE HCL 150 MG TABLET (FP) PO ONE (12:44)
--- NOTE | 2018-05-11 13:12 | EKG ---
Test Reason : Blood Pressure : / mmHG Vent. Rate : 119 BPM Atrial Rate : 119 BPM P-R Int : 158 ms QRS Dur : 094 ms QT Int : 342 ms P-R-T Axes : 057 083 033 degrees QTc Int : 481 ms SINUS TACHYCARDIA NONSPECIFIC ST ABNORMALITY ABNORMAL ECG NO PREVIOUS ECGS AVAILABLE Confirmed by Benson Hastings MD ([id number]) on 05/11/2018 1:12:04 PM Referred By: Confirmed By:Benson Hastings MD
--- NOTE | 2018-05-11 14:28 | CON.ID ---
Consult Consult Specialty:: infectious diseases Reason for Consultation:: leukocytosis - History of Present Illness Chief Complaint: weakness fatigue History of Present Illness: The patient is a 57 year old male with a past medical history of HTN and type 2 diabetes admitted blood sugar problem w/ vomiting. The patient reports sudden onset of NBNB emesis at 1130 am. Pt endorses symptoms of subjective fever, chills, urinary frequency, epigastric pain, weight loss, and severe shortness of breath. The patient states that he recently ran out of his long acting insulin and recently traveled by air. Patient endorses losing weight and increased urination patient on admission had very hig wbc currently patient is comfortable without any issues feels sleepy a lot - History Source History Provided By: Patient Limitations to Obtaining History: No Limitations - Past Medical History Cardio/Vascular: Yes: HTN Endocrine: Yes: Diabetes Mellitus - Alcohol/Substance Use Hx Alcohol Use: Yes (BEER 2-3/ DAY) - Smoking History Smoking history: Current every day smoker Have you smoked in the past 12 months: Yes Aproximately how many cigarettes per day: 10 Home Medications - Allergies Allergies/Adverse Reactions: Allergies Allergy/AdvReac Type Severity Reaction Status Date / Time ampicillin Allergy Severe ITCHING, Verified 08/31/17 08:21 RASH Penicillins Allergy Intermediate Itching, Verified 08/31/17 08:21 RASH - Home Medications Home Medications: Ambulatory Orders Insulin Aspart [Novolog] 18 unit SQ BID 06/08/15 Insulin Glargine,Hum.rec.anlog [Lantus (10mL VIAL) -] 68 units SQ HS 06/08/15 Atorvastatin Calcium 10 mg PO DAILY tablet 07/04/15 Losartan/Hydrochlorothiazide [Losartan-Hctz 100-12.5 Mg Tab] 1 each PO DAILY tablet 07/04/15 Cholecalciferol (Vitamin D3) [Vitamin D3] 2,000 unit PO DAILY 08/27/17 Dapagliflozin Propanediol [Farxiga] 10 mg PO DAILY 08/27/17 Sildenafil Citrate [Viagra] 50 mg PO HS 08/27/17 Review of Systems - Review of Systems Constitutional: reports: No Symptoms Eyes: reports: No Symptoms HENT: reports: No Symptoms Neck: reports: No Symptoms Cardiovascular: reports: No Symptoms Respiratory: reports: No Symptoms Gastrointestinal: reports: Vomiting Genitourinary: reports: Frequency Musculoskeletal: reports: No Symptoms Integumentary: reports: No Symptoms Neurological: reports: No Symptoms Endocrine: reports: No Symptoms Hematology/Lymphatic: reports: No Symptoms Psychiatric: reports: No Symptoms Physical Exam Vital Signs: Vital Signs Temperature 99.6 F 05/11/18 10:00 Pulse Rate 91 H 05/11/18 12:00 Respiratory Rate 20 05/11/18 12:00 Blood Pressure 104/90 05/11/18 12:00 O2 Sat by Pulse Oximetry (%) 100 05/11/18 09:00 Constitutional: Yes: No Distress, Calm Cardiovascular: Yes: Regular Rate and Rhythm Respiratory: Yes: Regular, CTA Bilaterally Gastrointestinal: Yes: Normal Bowel Sounds, Soft Musculoskeletal: Yes: WNL Extremities: Yes: WNL Neurological: Yes: Alert, Oriented Psychiatric: Yes: Alert, Oriented Labs: CBC, BMP 05/11/18 05:30 05/11/18 05:30 Imaging - Results Chest X-ray: Report Reviewed, Image Reviewed Assessment/Plan Diabetic Ketoacidosis resolving Lactic Acidosis resolved Acute Kidney Injury HTN Hyperlipidemia at the moment i have low suspicion for infection plan close monitoring monitor wbc await for all cx reports rest as per the team and icu cc 40 min
--- NOTE | 2018-05-11 17:39 | PN ---
Progress Note, Physician - Current Medication List Current Medications: Active Medications Atorvastatin Calcium (Lipitor -) 10 mg PO DAILY [facility] Last Admin: 05/11/18 09:56 Dose: 10 mg Hydrochlorothiazide (Hctz -) 12.5 mg PO DAILY [facility] Last Admin: 05/11/18 09:56 Dose: 12.5 mg Insulin Aspart (Novolog Vial Sliding Scale -) 1 vial SQ ACHS [facility]; Protocol Last Admin: 05/11/18 17:34 Dose: 4 units Insulin Detemir (Levemir Vial) 38 units SQ ONCE ONE Stop: 05/11/18 22:01 Losartan Potassium (Cozaar -) 100 mg PO DAILY [facility] Last Admin: 05/11/18 11:41 Dose: 100 mg - Objective Vital Signs: Vital Signs Temperature 98.4 F 05/11/18 14:00 Pulse Rate 78 05/11/18 14:00 Respiratory Rate 20 05/11/18 14:00 Blood Pressure 122/65 05/11/18 14:00 O2 Sat by Pulse Oximetry (%) 100 05/11/18 09:00 Constitutional: Yes: No Distress HENT: Yes: Atraumatic Neck: Yes: Supple Cardiovascular: Yes: Regular Rate and Rhythm Respiratory: Yes: CTA Bilaterally Gastrointestinal: Yes: Normal Bowel Sounds Extremities: Yes: WNL Neurological: Yes: Alert, Oriented Labs: CBC, BMP 05/11/18 05:30 05/11/18 05:30 Problem List - Problems (1) DKA (diabetic ketoacidoses) Assessment/Plan: monitor bgms on insulin pt states that he monitor his blood sugar at home, see his doctor regularly, ran out of his insulin due to some issue with insurance Code(s): E13.10 - OTH DIABETES MELLITUS WITH KETOACIDOSIS WITHOUT COMA (2) Hyperlipidemia Assessment/Plan: on meds stable Code(s): E78.5 - HYPERLIPIDEMIA, UNSPECIFIED (3) Hypertension Assessment/Plan: on meds stable Code(s): I10 - ESSENTIAL (PRIMARY) HYPERTENSION
[2018-05-12] MEDS ORDERED: INSULIN (NOVOLOG) ASPART 100 UNITS/ML 10ML VIAL SQ SCH (07:00)
[2018-05-12] MEDS: INSULIN (NOVOLOG) ASPART 100 UNITS/ML 10ML VIAL SQ SCH ×2 (07:02→16:35)
[2018-05-12] MEDS: INSULIN SLIDING SCALE (NOVOLOG) 1 VIAL SQ SCH ×4 (07:03→22:15)
[2018-05-12 08:49] LABS: HEMATOCRIT 42.1 % (35.4-49); HEMOGLOBIN 14.2 GM/dL (11.7-16.9); MCH 31.7 pg (25.7-33.7); MCHC 33.7 g/dl (32.0-35.9); MEAN CELL VOLUME 94.1 fl (80-96); MEAN PLT VOLUME 8.1 fl (7.5-11.1); PLATELET COUNT 189 K/MM3 (134-434); RBC 4.48 M/mm3 (4.00-5.60); RDW 13.5 % (11.9-15.9); WHITE BLOOD COUNT 9.8 K/mm3 (4.0-10.0)
[2018-05-12 09:10] LABS: ANION GAP 10 MMOL/L (8-16); BLOOD UREA NITROGEN 15 mg/dL (7-18); CALCIUM 8.4 mg/dL (8.5-10.1); CHLORIDE 106 mmol/L (98-107); CO2 26 mmol/L (21-32); CREATININE 0.8 mg/dL (0.7-1.3); GLUCOSE,RANDOM 175 mg/dL (74-106); MAGNESIUM 2.3 mg/dL (1.8-2.4); PHOSPHOROUS 1.4 mg/dL (2.5-4.9); POTASSIUM 3.9 mmol/L (3.5-5.1); SODIUM 142 mmol/L (136-145)
[2018-05-12] MEDS: HYDROCHLOROTHIAZIDE 12.5 MG CAPSULE (FP) PO SCH (10:07)
[2018-05-12] MEDS: LOSARTAN POTASSIUM 50 MG TABLET (FP) PO SCH (10:07)
[2018-05-12] MEDS ORDERED: INSULIN (NOVOLOG) ASPART 100 UNITS/ML 10ML VIAL ONE ×2 (11:22→21:29)
--- NOTE | 2018-05-12 11:26 | PN ---
Progress Note (short form) - Note Progress Note: Feels good Denies any complaints Vital Signs Period Temp Pulse Resp BP Sys/Casiano Pulse Ox Last 24 Hr 98.4 F-99.0 F 62-91 15-20 104-122/57-90 96-98 PE: AOx3 Neck: Supple, No JVD HEENT: PERRL, EOMI Lungs: CTA CVS: S1S2 Abd: Benign Ext: No edema Neuro: No focal deficit ] CMP Sodium 142 mmol/L (136-145) 05/12/18 07:52 Potassium 3.9 mmol/L (3.5-5.1) 05/12/18 07:52 Chloride 106 mmol/L (98-107) 05/12/18 07:52 Carbon Dioxide 26 mmol/L (21-32) 05/12/18 07:52 Anion Gap 10 MMOL/L (8-16) 05/12/18 07:52 BUN 15 mg/dL (7-18) 05/12/18 07:52 Creatinine 0.8 mg/dL (0.7-1.3) 05/12/18 07:52 Creat Clearance w eGFR > 60 (>60) 05/12/18 07:52 POC Glucometer 251 UNITS (80-120) 05/12/18 10:51 Random Glucose 175 mg/dL (74-106) H 05/12/18 07:52 Hemoglobin A1c % 8.1 % (4.8-6.0) H 05/11/18 05:30 Lactic Acid 1.1 mmol/L (0.0-2.0) 05/11/18 05:30 Calcium 8.4 mg/dL (8.5-10.1) L 05/12/18 07:52 Phosphorus 1.4 mg/dL (2.5-4.9) L D 05/12/18 07:52 Magnesium 2.3 mg/dL (1.8-2.4) 05/12/18 07:52 Total Bilirubin 0.6 mg/dL (0.2-1.0) 05/11/18 05:30 AST 35 U/L (15-37) D 05/11/18 05:30 ALT 44 U/L (12-78) 05/11/18 05:30 Alkaline Phosphatase 55 U/L (45-117) D 05/11/18 05:30 Creatine Kinase 190 IU/L (39-308) 05/10/18 18:30 Creatine Kinase Index 2.2 % (0.0-5.0) 05/10/18 18:30 CK-MB (CK-2) 4.20 ng/mL (0.5-3.6) H 05/10/18 18:30 Troponin I 0.02 ng/ml (0.00-0.05) 05/10/18 18:30 Total Protein 6.3 g/dl (6.4-8.2) L 05/11/18 05:30 Albumin 3.7 g/dl (3.4-5.0) 05/11/18 05:30 Lipase 180 U/L (73-393) 05/10/18 18:30 Current Medications Generic Name Dose Route Start Last Admin Trade Name Freq PRN Reason Stop Dose Admin Atorvastatin Calcium 10 mg 05/12/18 22:00 Lipitor - PO HS MELISSA Hydrochlorothiazide 12.5 mg 05/12/18 10:00 05/12/18 10:07 Hctz - PO 12.5 mg DAILY MELISSA Administration Insulin Aspart 12 units 05/12/18 07:00 05/12/18 07:02 Novolog Vial SQ 12 units BID@0700,1630 MELISSA Administration Insulin Aspart 1 vial 05/11/18 22:00 05/12/18 07:03 Novolog Vial Sliding Scale - SQ 2 units ACHS MELISSA Administration Protocol Insulin Detemir 68 units 05/12/18 22:00 Levemir Vial SQ HS MELISSA Losartan Potassium 100 mg 05/12/18 10:00 05/12/18 10:07 Cozaar - PO 100 mg DAILY MELISSA Administration AP; DKA DM ?type 1 Leukocytosis: resolved, 9.8 today HTN HLD BGM QACHS and 3 AM Levemir 50 units tonight. Novolog SS coverage Novolog 12 units BID Neutrophos one pack BID Infectious disease consult noted Will f/u
[2018-05-12] MEDS: NAPH,MB-DB/K PH,MBDB POWDER PACKET PO SCH ×2 (11:45→22:14)
--- NOTE | 2018-05-12 14:11 | PN ---
Progress Note, Physician History of Present Illness: doing well no issues - Current Medication List Current Medications: Active Medications Atorvastatin Calcium (Lipitor -) 10 mg PO HS [facility] Hydrochlorothiazide (Hctz -) 12.5 mg PO DAILY [facility] Last Admin: 05/12/18 10:07 Dose: 12.5 mg Insulin Aspart (Novolog Vial) 12 units SQ BID@0700,1630 [facility] Last Admin: 05/12/18 07:02 Dose: 12 units Insulin Aspart (Novolog Vial Sliding Scale -) 1 vial SQ [facility]; Protocol Last Admin: 05/12/18 11:45 Dose: 6 units Insulin Detemir (Levemir Vial) 50 units SQ HS [facility] Losartan Potassium (Cozaar -) 100 mg PO DAILY [facility] Last Admin: 05/12/18 10:07 Dose: 100 mg Potassium Phos/Sodium Phos (Phos-Nak Packet -) 1 packet PO BID [facility] Last Admin: 05/12/18 11:45 Dose: 1 packet - Objective Vital Signs: Vital Signs Temperature 98.7 F 05/12/18 10:00 Pulse Rate 74 05/12/18 10:00 Respiratory Rate 18 05/12/18 10:00 Blood Pressure 118/70 05/12/18 10:00 O2 Sat by Pulse Oximetry (%) 96 05/12/18 10:10 Constitutional: Yes: No Distress, Calm Cardiovascular: Yes: Regular Rate and Rhythm Respiratory: Yes: Regular, CTA Bilaterally Gastrointestinal: Yes: Normal Bowel Sounds, Soft Musculoskeletal: Yes: WNL Extremities: Yes: WNL Neurological: Yes: Alert Psychiatric: Yes: Alert, Oriented Labs: CBC, BMP 05/12/18 07:52 05/12/18 07:52 Assessment/Plan Diabetic Ketoacidosis resolving Lactic Acidosis resolved Acute Kidney Injury HTN Hyperlipidemia patient stable wbc has normalized plan continue observing without abx rest as per the team
--- NOTE | 2018-05-12 17:14 | PN ---
Progress Note, Physician History of Present Illness: feeling good wants to go home - Current Medication List Current Medications: Active Medications Atorvastatin Calcium (Lipitor -) 10 mg PO HS [facility] Hydrochlorothiazide (Hctz -) 12.5 mg PO DAILY [facility] Last Admin: 05/12/18 10:07 Dose: 12.5 mg Insulin Aspart (Novolog Vial) 12 units SQ BID@0700,1630 [facility] Last Admin: 05/12/18 16:35 Dose: 12 units Insulin Aspart (Novolog Vial Sliding Scale -) 1 vial SQ [facility]; Protocol Last Admin: 05/12/18 16:36 Dose: 6 units Insulin Detemir (Levemir Vial) 50 units SQ [facility] Losartan Potassium (Cozaar -) 100 mg PO DAILY [facility] Last Admin: 05/12/18 10:07 Dose: 100 mg Potassium Phos/Sodium Phos (Phos-Nak Packet -) 1 packet PO BID [facility] Last Admin: 05/12/18 11:45 Dose: 1 packet - Objective Vital Signs: Vital Signs Temperature 98.4 F 05/12/18 15:54 Pulse Rate 56 L 05/12/18 15:54 Respiratory Rate 20 05/12/18 15:54 Blood Pressure 132/80 05/12/18 15:54 O2 Sat by Pulse Oximetry (%) 96 05/12/18 10:10 Constitutional: Yes: No Distress HENT: Yes: Atraumatic Neck: Yes: Supple Cardiovascular: Yes: Regular Rate and Rhythm Respiratory: Yes: CTA Bilaterally Gastrointestinal: Yes: Normal Bowel Sounds Extremities: Yes: WNL Edema: No Peripheral Pulses WNL: Yes Neurological: Yes: Alert, Oriented Labs: CBC, BMP 05/12/18 07:52 05/12/18 07:52 Problem List - Problems (1) DKA (diabetic ketoacidoses) Assessment/Plan: monitor bgms on insulin pt states that he monitor his blood sugar at home, see his doctor regularly, ran out of his insulin due to some issue with insurance Code(s): E13.10 - OTH DIABETES MELLITUS WITH KETOACIDOSIS WITHOUT COMA (2) Hyperlipidemia Assessment/Plan: on meds stable Code(s): E78.5 - HYPERLIPIDEMIA, UNSPECIFIED (3) Hypertension Assessment/Plan: on meds stable Code(s): I10 - ESSENTIAL (PRIMARY) HYPERTENSION
[2018-05-12] MEDS ORDERED: INSULIN (LEVEMIR) 100 UNITS/ML UNITS SQ ONE (21:28)
[2018-05-12] MEDS ORDERED: ATORVASTATIN CA 10 MG TABLET (FP) PO SCH (22:00)
[2018-05-12] MEDS ORDERED: INSULIN (LEVEMIR) 100 UNITS/ML UNITS SQ SCH ×2 (22:00)
[2018-05-13] MEDS: INSULIN SLIDING SCALE (NOVOLOG) 1 VIAL SQ SCH (06:52)
[2018-05-13] MEDS: INSULIN (NOVOLOG) ASPART 100 UNITS/ML 10ML VIAL SQ SCH (06:52)
[2018-05-13] MEDS ORDERED: INSULIN (LEVEMIR) 100 UNITS/ML UNITS SQ ONE (07:57)
[2018-05-13] MEDS ORDERED: INSULIN (NOVOLOG) ASPART 100 UNITS/ML 10ML VIAL ONE (07:57)
--- NOTE | 2018-05-13 08:57 | PN ---
Progress Note (short form) - Note Progress Note: Feels good Denies any complaints BGM in morning 150 No hypos Vital Signs Period Temp Pulse Resp BP Sys/Casiano Pulse Ox Last 24 Hr 98.2 F-98.7 F 56-74 18-20 118-132/70-80 96-96 PE: AOx3 Neck: Supple, No JVD HEENT: PERRL, EOMI Lungs: CTA CVS: S1S2 Abd: Benign Ext: No edema Neuro: No focal deficit ] CMP Sodium 142 mmol/L (136-145) 05/12/18 07:52 Potassium 3.9 mmol/L (3.5-5.1) 05/12/18 07:52 Chloride 106 mmol/L (98-107) 05/12/18 07:52 Carbon Dioxide 26 mmol/L (21-32) 05/12/18 07:52 Anion Gap 10 MMOL/L (8-16) 05/12/18 07:52 BUN 15 mg/dL (7-18) 05/12/18 07:52 Creatinine 0.8 mg/dL (0.7-1.3) 05/12/18 07:52 Creat Clearance w eGFR > 60 (>60) 05/12/18 07:52 POC Glucometer 154 UNITS (80-120) 05/13/18 06:51 Random Glucose 175 mg/dL (74-106) H 05/12/18 07:52 Hemoglobin A1c % 8.1 % (4.8-6.0) H 05/11/18 05:30 Lactic Acid 1.1 mmol/L (0.0-2.0) 05/11/18 05:30 Calcium 8.4 mg/dL (8.5-10.1) L 05/12/18 07:52 Phosphorus 1.4 mg/dL (2.5-4.9) L D 05/12/18 07:52 Magnesium 2.3 mg/dL (1.8-2.4) 05/12/18 07:52 Total Bilirubin 0.6 mg/dL (0.2-1.0) 05/11/18 05:30 AST 35 U/L (15-37) D 05/11/18 05:30 ALT 44 U/L (12-78) 05/11/18 05:30 Alkaline Phosphatase 55 U/L (45-117) D 05/11/18 05:30 Creatine Kinase 190 IU/L (39-308) 05/10/18 18:30 Creatine Kinase Index 2.2 % (0.0-5.0) 05/10/18 18:30 CK-MB (CK-2) 4.20 ng/mL (0.5-3.6) H 05/10/18 18:30 Troponin I 0.02 ng/ml (0.00-0.05) 05/10/18 18:30 Total Protein 6.3 g/dl (6.4-8.2) L 05/11/18 05:30 Albumin 3.7 g/dl (3.4-5.0) 05/11/18 05:30 Lipase 180 U/L (73-393) 05/10/18 18:30 Current Medications Generic Name Dose Route Start Last Admin Trade Name Freq PRN Reason Stop Dose Admin Atorvastatin Calcium 10 mg 05/12/18 22:00 05/12/18 22:14 Lipitor - PO 10 mg HS MELISSA Administration Hydrochlorothiazide 12.5 mg 05/12/18 10:00 05/12/18 10:07 Hctz - PO 12.5 mg DAILY MELISSA Administration Insulin Aspart 12 units 05/12/18 07:00 05/13/18 06:52 Novolog Vial SQ 12 units BID@0700,1630 MELISSA Administration Insulin Aspart 1 vial 05/11/18 22:00 05/13/18 06:52 Novolog Vial Sliding Scale - SQ 2 units ACHS MELISSA Administration Protocol Insulin Detemir 50 units 05/12/18 22:00 05/12/18 22:14 Levemir Vial SQ 50 units HS MELISSA Administration Losartan Potassium 100 mg 05/12/18 10:00 05/12/18 10:07 Cozaar - PO 100 mg DAILY MELISSA Administration Potassium Phos/Sodium Phos 1 packet 05/12/18 11:30 05/12/18 22:14 Phos-Nak Packet - PO 1 packet BID MELISSA Administration AP; DKA DM ?type 1 Leukocytosis: resolved, 9.8 today HTN HLD BGM QACHS and 3 AM Increase Levemir 55 units tonight at home, f/u with Dr Vogel within a week, No Farxiga for now. To discuss with Dr Keane to decide whether to restart it. Novolog SS coverage Novolog 12 units BID Neutrophos one pack BID To call me at [phone] with any questions. Will f/u
[2018-05-13] MEDS: NAPH,MB-DB/K PH,MBDB POWDER PACKET PO SCH (09:25)
[2018-05-13] MEDS: HYDROCHLOROTHIAZIDE 12.5 MG CAPSULE (FP) PO SCH (09:25)
[2018-05-13] MEDS: LOSARTAN POTASSIUM 50 MG TABLET (FP) PO SCH (09:25)
[2018-05-13 09:38] VITALS: BP 131/69; PULSE 71; TEMP 98.7
--- NOTE | 2018-05-13 19:52 | DS ---
Physical Examination Vital Signs: Vital Signs Temperature 98.7 F 05/13/18 09:00 Pulse Rate 71 05/13/18 09:00 Respiratory Rate 18 05/13/18 09:00 Blood Pressure 131/69 05/13/18 09:00 O2 Sat by Pulse Oximetry (%) 95 05/13/18 09:00 Labs: CBC, BMP 05/12/18 07:52 05/12/18 07:52 Discharge Summary Reason For Visit: DIABETIC KETOACIDOSIS Condition: Stable - Instructions Diet, Activity, Other Instructions: *pt need to see his curb hop *CHECK BLOOD SUGAR BEFORE MEAL AND BEDTIME, 3AM. *LANTUS 55 UNITS SQ AT BEDTIME *NOVOLOG 12-15 UNITS SQ THREE TIME A DAY DIRECTED Referrals: Gonzalo Keane MD [Primary Care Provider] - Yadira Jin MD [Staff Physician] - Disposition: HOME - Home Medications Comprehensive Discharge Medication List: Ambulatory Orders Insulin Aspart [Novolog] 18 unit SQ BID 06/08/15 Insulin Glargine,Hum.rec.anlog [Lantus (10mL VIAL) -] 68 units SQ HS 06/08/15 Atorvastatin Calcium 10 mg PO DAILY tablet 07/04/15 Losartan/Hydrochlorothiazide [Losartan-Hctz 100-12.5 mg Tab] 1 each PO DAILY tablet 07/04/15 Cholecalciferol (Vitamin D3) [Vitamin D3] 2,000 unit PO DAILY 08/27/17 Dapagliflozin Propanediol [Farxiga] 10 mg PO DAILY 08/27/17 Sildenafil Citrate [Viagra] 50 mg PO HS 08/27/17 wa home
== END 2018-05-13 09:43 | disposition home or self-care (01) | DRG 420 ==
LOC: JER 17:12 → JERBED 18:51 → JICU 22:23 → J5S 05-11 19:26
PROVIDERS: ADMIT Internal Medicine; ATTEND Internal Medicine
DX: E11.10 Type 2 diabetes mellitus with ketoacidosis without coma (principal); I10 Essential (primary) hypertension; F17.210 Nicotine dependence, cigarettes, uncomplicated; E78.5 Hyperlipidemia, unspecified; E87.2 Acidosis; D72.829 Elevated white blood cell count, unspecified; R65.10 Systemic inflammatory response syndrome (SIRS) of non-infectious origin without acute organ dysfunction; R63.4 Abnormal weight loss; Z68.30 Body mass index [BMI] 30.0-30.9, adult; R35.0 Frequency of micturition; N17.9 Acute kidney failure, unspecified; Z91.19 Patient's noncompliance with other medical treatment and regimen; Z79.4 Long term (current) use of insulin; Z88.0 Allergy status to penicillin
CPT/HCPCS: 36415; 36600; 71045-TC-FY; 80048; 80053; 81003; 81015; 82009; 82550; 82553; 82803; 82962; 83036; 83605; 83690; 83735; 84100; 84484; 85025; 85027; 87040; 87804; 87899; 93005; 93010; 99285-25; J3480; J7030